=== PATIENT | male | born 1985 | race African-American/Black ===

== ENCOUNTER 2021-09-29 23:47 | Emergency (ER) | payer SELFPAY ==
[~2021-09-29] VITALS: Ht 167.6 cm; Wt 72.0 kg
[2021-09-30] MEDS ORDERED: IBUPROFEN 600MG TABLET PO ONE (00:30)
[2021-09-30 04:00] VITALS: BP 112/69
[2021-09-30] MEDS ORDERED: IBUP-2029 MT (04:06)
== END 2021-09-30 04:19 | disposition home or self-care (01) ==
LOC: ER 23:47
DX: R07.89 Other chest pain (principal)
CPT/HCPCS: 71045; 93005; 99283